=== PATIENT | male | born 1945 | race Two or more races ===

== ENCOUNTER 2019-08-07 16:10 | Observation (INO) | payer MEDICARE, OTHER ==
[~2019-08-07] VITALS: Ht 165.1 cm; Wt 80.0 kg
--- NOTE | 2019-08-07 16:59 | NUR ---
PT HERE FOR [facility] X A MONTH. PT REPORTS SYMPTOMS ON AND OFF. SOMETIMES THEY RESOLVE VERY QUICKLY OTHER TIMES IT TAKES DAYS. PT REPORTS VERTIGO AND SEVERE DIZZYNESS. PT DENEIS ANY TRUAMA OR VISUAL CHANGES. PT WAS HYPOXIC ON ARRIVAL. MRI SCREENING FORM COMPLETED AND GIVEN TO SHOW HOST OR HOSTESS. PT XRAY COMPLETED. AWAITING FURTHER ORDERS.
[2019-08-07] MEDS ORDERED: ONDANSETRON ODT 4 MG PO ONE (17:00)
[2019-08-07] MEDS ORDERED: DIAZEPAM 5 MG TABLET PO ONE (17:00)
[2019-08-07 17:07] LABS: BASOPHILS # (AUTO) 0.01 x10^3/uL (0-0.1); BASOPHILS % (AUTO) 0 % (0-1); EOSINOPHILS # (AUTO) 0.01 x10^3/uL (0-0.4); EOSINOPHILS % (AUTO) 0 % (1-7); LYMPHOCYTES # (AUTO) 1.01 x10^3/uL (1-3.4); LYMPHOCYTES % (AUTO) 7 % (22-44); MD NO; MEAN CORPUSCULAR HEMOGLOBIN 29.3 pg (27.5-34.5); MEAN CORPUSCULAR HGB CONC 33.1 g/dL (33.2-36.2); MEAN CORPUSCULAR VOLUME 88.4 fL (81-97); MEAN PLATELET VOLUME 7.8 fL (7.4-10.4); MONOCYTES % (AUTO) 5 % (2-9); NEUTROPHILS # (AUTO) 12.79 x10^3/uL (1.8-6.8); NEUTROPHILS % (AUTO) 88 % (42-75); PLATELET COUNT 230 x10^3/uL (130-400); RED BLOOD COUNT 5.17 x10^6/uL (4.38-5.82); RED CELL DISTRIBUTION WIDTH 13.3 % (9.4-14.8)
[2019-08-07 17:17] LABS: ALBUMIN 3.4 g/dL (3.4-5.0); ANION GAP 7 mmol/L (5-15); CALCIUM 8.6 mg/dL (8.5-10.1); CHLORIDE 101 mmol/L (98-107); CREATININE 1.07 mg/dL (0.7-1.3)
[2019-08-07] MEDS ORDERED: ONDANSETRON ODT 4 MG ONE (17:32)
[2019-08-07] MEDS ORDERED: DIAZEPAM 5 MG TABLET ONE (17:32)
--- NOTE | 2019-08-07 17:36 | NUR ---
PT MEDICATED PER EMAR.
--- NOTE | 2019-08-07 18:40 | NUR ---
FLOAT RN: PT RESTING IN ROOM. REGULAR RESP. NO ACUTE DISTRESS NOTED. WILL CONTINUE TO MONITOR WHILE PRIMARY RN IS ON BREAK. FAMILY AT BEDSIDE.
--- NOTE | 2019-08-07 18:50 | NUR ---
TONYA RN: DR KC IN ROOM UPDATING PATIENT.
[2019-08-07] MEDS: SODIUM CHLORIDE 0.9% 1,000 ML IV SCH (20:02)
[2019-08-07] MEDS ORDERED: ONDANSETRON ODT 4 MG PO PRN (20:30)
[2019-08-07] MEDS ORDERED: MECLIZINE 25 MG TABLET PO PRN (20:30)
[2019-08-07] MEDS ORDERED: ACETAMINOPHEN 325 MG TABLET PO PRN (20:30)
[2019-08-07] MEDS ORDERED: ENOXAPARIN 40 MG/0.4 ML SQ SCH (20:30)
[2019-08-07] MEDS ORDERED: AMPICILLIN/SULBACTAM 3 GM in SODIUM CHLORIDE 0.9% 100 ML IV SCH (20:30)
[2019-08-07] MEDS ORDERED: ONDANSETRON 2MG/ML, 2ML IVPush PRN (20:30)
[2019-08-07] MEDS: INSULIN LISPRO 100 UNITS/ML, PEN SQ-INSULIN SCH (21:00)
[2019-08-07 21:05] LABS: HEMOGLOBIN A1C 9.4 % (4.2-6.3)
[2019-08-07] MEDS ORDERED: ENOXAPARIN 40 MG/0.4 ML ONE (22:40)
[2019-08-07] MEDS ORDERED: INSULIN LISPRO SINGLE DOSE, ER SQ-INSULIN ONE (22:55)
--- NOTE | 2019-08-07 23:13 | NUR ---
PT MEDICATED PER EMAR AND GIVEN INSULIN PER SLIDING SCALE.
[2019-08-07 23:44] VITALS: BP 128/71
[2019-08-08 00:21] VITALS: BP 128/71
[2019-08-08] MEDS ORDERED: TAMS-11 PO (01:41)
[2019-08-08] MEDS ORDERED: NITR50CA PO (01:41)
[2019-08-08] MEDS ORDERED: METF10007 PO (01:41)
[2019-08-08] MEDS: AMPICILLIN/SULBACTAM 3 GM in SODIUM CHLORIDE 0.9% 100 ML IV SCH ×2 (05:21→11:30)
[2019-08-08 06:00] LABS: ALANINE AMINOTRANSFERASE 22 U/L (12-78); ALBUMIN 2.9 g/dL (3.4-5.0); ANION GAP 4 mmol/L (5-15); CALCIUM 8.2 mg/dL (8.5-10.1); CHLORIDE 103 mmol/L (98-107)
[2019-08-08 06:02] LABS: MEAN CORPUSCULAR HGB CONC 33.2 g/dL (33.2-36.2); MEAN CORPUSCULAR VOLUME 87.5 fL (81-97); MEAN PLATELET VOLUME 7.6 fL (7.4-10.4); PLATELET COUNT 205 x10^3/uL (130-400); RED BLOOD COUNT 4.79 x10^6/uL (4.38-5.82); RED CELL DISTRIBUTION WIDTH 13.5 % (9.4-14.8)
[2019-08-08 06:03] LABS: ALKALINE PHOSPHATASE 99 U/L (45-117); BILIRUBIN,TOTAL 1.4 mg/dL (0.2-1.0); CREATININE 1.12 mg/dL (0.7-1.3); TOTAL PROTEIN 7.1 g/dL (6.4-8.2)
[2019-08-08 07:10] LABS: BASOPHILS # (AUTO) 0.04 x10^3/uL (0-0.1); BASOPHILS % (AUTO) 0 % (0-1); EOSINOPHILS # (AUTO) 0.01 x10^3/uL (0-0.4); EOSINOPHILS % (AUTO) 0 % (1-7); LYMPHOCYTES # (AUTO) 0.96 x10^3/uL (1-3.4); LYMPHOCYTES % (AUTO) 8 % (22-44); MD SCAN; MONOCYTES # (AUTO) 0.91 x10^3/uL (0.2-0.8); MONOCYTES % (AUTO) 8 % (2-9); NEUTROPHILS # (AUTO) 10.21 x10^3/uL (1.8-6.8); NEUTROPHILS % (AUTO) 84 % (42-75)
[2019-08-08 07:34] VITALS: BP 100/65
[2019-08-08] MEDS: SODIUM CHLORIDE 0.9% 1,000 ML IV SCH (09:22)
[2019-08-08] MEDS ORDERED: AMOX-367 PO (09:33)
[2019-08-08] MEDS: INSULIN LISPRO 100 UNITS/ML, PEN SQ-INSULIN SCH ×2 (09:47→11:00)
[2019-08-08 11:28] VITALS: BP 120/66
[2019-08-08 11:30] VITALS: BP 126/71
[2019-08-08 11:32] VITALS: BP 128/74
== END 2019-08-08 12:50 | disposition home or self-care (01) ==
LOC: ED 19:14 → EDIP 19:15 → INTOOBSV 19:15 → 4EST 23:42 → DCLOUNGE 08-08 12:38
PROVIDERS: ADMIT Internal Medicine; ATTEND Family Medicine
DX: J01.90 Acute sinusitis, unspecified (principal); E87.1 Hypo-osmolality and hyponatremia; J98.11 Atelectasis; E11.65 Type 2 diabetes mellitus with hyperglycemia; H81.10 Benign paroxysmal vertigo, unspecified ear; I10 Essential (primary) hypertension; N40.0 Benign prostatic hyperplasia without lower urinary tract symptoms; R09.02 Hypoxemia; Z79.84 Long term (current) use of oral hypoglycemic drugs; Z87.891 Personal history of nicotine dependence
CPT/HCPCS: 36415; 70551; 71045; 80048; 80053; 82040; 82962; 83036; 84145; 85025; 93005; 96361; 96365; 96366; 96372; 97161; 99285; G0378; J0295; J1650; J1815; J7030; Q0162